=== PATIENT | male | born 1995 | race Caucasian/White ===

== ENCOUNTER 2024-02-04 15:12 | Emergency (ER) | payer OTHER ==
[~2024-02-04] VITALS: Ht 180.3 cm; Wt 104.0 kg
[2024-02-04 15:17] VITALS: TEMP 98.3; O2SAT 97
[2024-02-04] MEDS: TETANUS, DIPHTHERIA, PERTUSSIS VAC/PF 0.5ML (>10YR OLD) IM ONE (16:48)
[2024-02-04] MEDS: ONDANSETRON HCL 4MG/2ML INJ IV STA (16:49)
[2024-02-04] MEDS: MORPHINE SULFATE 4 MG/ML CPJ (NOT FOR IM USE) IV STA (16:49)
[2024-02-04 17:00] LABS: BASOPHILS % 0.4 % (0.0-2.0); EOSINOPHILS % 3.9 % (0.0-5.0); HEMATOCRIT. 49.3 % (42.0-52.0); HEMOGLOBIN. 16.9 g/dL (14.0-18.0); LYMPHOCYTES % 17.6 % (20.0-50.0); MEAN CORPUSCULAR HEMOGLOBIN 28.4 pg (28.0-32.0); MEAN CORPUSCULAR HGB CONC 34.2 g/dL (31.0-37.0); MEAN CORPUSCULAR VOLUME 83.1 fL (80.0-94.0); MEAN PLATELET VOLUME 8.1 fl (7.4-10.4); MONOCYTES % 8.4 % (2.0-8.0); NEUTROPHILS % 69.7 % (40.0-76.0); PLATELET 355 x1000/uL (130-400); RED BLOOD CELL COUNT 5.94 mill/uL (4.7-6.1); RED CELL DISTRIBUTION WIDTH 13.6 % (11.6-14.6); WHITE BLOOD COUNT 11.2 x1000/uL (4.5-11.0)
[2024-02-04 17:40] LABS: ALANINE AMINOTRANSFERASE 42 IU/L (10-49); ASPARTATE AMINOTRANSFERASE 35 IU/L (<34); BILIRUBIN TOTAL 0.6 mg/dL (0.1-1.0); CALCIUM 9.5 mg/dL (8.7-10.4); CARBON DIOXIDE 24 mEq/L (21-32); CHLORIDE 106 mEq/L (98-107); CREATININE 0.8 mg/dL (0.6-1.3); GLUCOSE 88 mg/dL (70-105); POTASSIUM 3.8 mEq/L (3.5-5.1); PROTEIN TOTAL 8.3 g/dL (6.0-8.3); SODIUM 137 mEq/L (136-145); UREA NITROGEN BLOOD 9 mg/dL (9-23)
[2024-02-04 18:15] VITALS: BP 104/84; PULSE 110; RESP 18
[2024-02-04] MEDS: KETOROLAC 30MG/ML VIAL IM ONE (18:15)
[2024-02-04] MEDS ORDERED: IBUP-2029 PO (18:19)
[2024-02-04] MEDS ORDERED: IOHEXOL-300 100 ML BOTTLE ONE (23:14)
== END 2024-02-04 20:27 | disposition home or self-care (01) ==
LOC: ER 15:21
DX: S01.01XA Laceration without foreign body of scalp, initial encounter (principal); S10.83XA Contusion of other specified part of neck, initial encounter; S27.329A Contusion of lung, unspecified, initial encounter; V98.8XXA Other specified transport accidents, initial encounter; Y93.89 Activity, other specified; Y92.89 Other specified places as the place of occurrence of the external cause; Y99.8 Other external cause status
CPT/HCPCS: 80053; 85025; 36415; 71045; 70450; 71260; 72125; 74177; 90715; 12002; 90471; 96372; 96374; 96375; 99285; Q9967; J1885; J2405; J2270; Z7610 ×4